=== PATIENT | female | born 1990 | race Caucasian/White ===

== ENCOUNTER 2017-01-08 00:21 | Emergency (ER) | payer OTHER ==
[2017-01-08 00:53] VITALS: TEMP 96.9; BMI 36.7
[2017-01-08] MEDS ORDERED: SODIUM CHLORIDE 1,000 ML IV STA ×2 (01:08→03:05)
[2017-01-08] MEDS ORDERED: FAMOTIDINE 20 MG/50 ML IVPB 50 ML IVPB ONE ×2 (01:08→01:35)
[2017-01-08] MEDS ORDERED: ONDANSETRON 4 MG/2 ML VIAL IVPUSH ONE (01:08)
--- NOTE | 2017-01-08 01:18 | PDOC ---
History of Present Illness - General Chief Complaint: Nausea/Vomiting Stated Complaint: VOMITING BLOOD, NUMBNESS RT HAND Time Seen by Provider: 01/08/17 00:55 History Source: Patient - History of Present Illness Initial Comments: 01/08/17 01:27 27-year-old female complaining of several episodes of vomiting and nausea since 9 PM after eating steak and shrimp at home. Patient reports no other sick contacts. Patient also reports some mild epigastric pain. Denies fever, diarrhea , chest pain, headache. Past History - Past Medical History Allergies/Adverse Reactions: Allergies Allergy/AdvReac Type Severity Reaction Status Date / Time No Known Allergies Allergy Verified 01/08/17 00:52 Home Medications: Ambulatory Orders NK [No Known Home Medication] 01/08/17 Other medical history: Denies - Immunization History Immunization Up to Date: No - Psycho/Social/Smoking Cessation Hx Anxiety: No Suicidal Ideation: No Smoking History: Never smoked Have you smoked in the past 12 months: No Information on smoking cessation initiated: No Hx Alcohol Use: Yes Drug/Substance Use Hx: No Substance Use Type: None Review of Systems - Review of Systems Able to Perform ROS?: Yes Is the patient limited Belgian proficient: No Constitutional: No: Symptoms Reported, See HPI, Chills, Diaphoresis, Fever, Loss of Appetite, Malaise, Night Sweats, Weakness, Weight Stable, Unintentional Wgt. Loss, Unexplained wgt Loss, Other ABD/GI: Yes: Nausea, Vomiting, Other (epigastric pain) : No: Symptoms Reported, See HPI, Burning, Dysuria, Discharge, Frequency, Flank Pain, Hematuria, Incontinence, Pain, Urgency, Testicular Mass, Testicular Swelling, Lesions, Testicular Pain, Other Musculoskeletal: No: Symptoms Reported, See HPI, Back Pain, Gout, Joint Pain, Joint Swelling, Muscle Pain, Muscle Weakness, Neck Pain, Joint Stiffness, Other Integumentary: No: Symptoms Reported, See HPI, Bruising, Change in Color, Change in Hair/Nails, Dryness, Erythema, Flushing, Lesions, Lumps, Pallor, Pruritus, Rash, Sweating, Other *Physical Exam - Vital Signs Last Vital Signs Temp Pulse Resp BP Pulse Ox 96.9 F L 77 19 117/86 98 01/08/17 00:46 01/08/17 00:46 01/08/17 00:46 01/08/17 00:46 01/08/17 00:46 - Physical Exam General Appearance: Yes: Appropriately Dressed Respiratory/Chest: positive: Lungs Clear, Normal Breath Sounds Cardiovascular: positive: Regular Rhythm, Regular Rate Gastrointestinal/Abdominal: positive: Normal Bowel Sounds, Tender (epigastric pain), Soft Extremity: positive: Normal Capillary Refill, Normal Inspection, Normal Range of Motion Integumentary: positive: Normal Color, Dry, Warm Neurologic: positive: Fully Oriented, Alert, Normal Mood/Affect ED Treatment Course - LABORATORY CBC & Chemistry Diagram: 01/08/17 01:20 01/08/17 01:20 Progress Note - Progress Note Progress Note: A: gastroenteritis P: *DC/Admit/Observation/Transfer Diagnosis at time of Disposition: Gastroenteritis - Discharge Dispostion Disposition: HOME Condition at time of disposition: Fair - Referrals Referrals: Dana Lowry [Primary Care Provider] - - Patient Instructions Printed Discharge Instructions: DI for Vomiting -- Adult Additional Instructions: drink plenty of fluids START as BRAT (bananas, rice, apples, [place]) diet follow up with your doctor as soon as possible. - Post Discharge Activity Work/School Note: Back to Work
[2017-01-08 01:32] LABS: BASOPHIL 0.4 % (0-2.0); EOSINOPHIL 0.2 % (0-4.5); MCHC 30.7 g/dl (32.0-36.0); MEAN CELL VOLUME 61.3 fl (80-96); MEAN PLT VOLUME 8.8 fl (7.5-11.1); NEUTROPHILS 85.7 % (42.8-82.8); PLATELET COUNT 449 K/MM3 (134-434); RDW 20.6 % (11.6-15.6); WHITE BLOOD COUNT 9.8 K/mm3 (4.0-10.0)
[2017-01-08 01:33] LABS: MCH 18.8 pg (25.7-33.7)
--- NOTE | 2017-01-08 01:53 | PDOC ---
*Physical Exam - Vital Signs Last Vital Signs Temp Pulse Resp BP Pulse Ox 96.9 F L 77 19 117/86 98 01/08/17 00:46 01/08/17 00:46 01/08/17 00:46 01/08/17 00:46 01/08/17 00:46 ED Treatment Course - LABORATORY CBC & Chemistry Diagram: 01/08/17 01:20 01/08/17 01:20 - ADDITIONAL ORDERS Additional order review: 01/08/17 01:20 RBC 5.03 MCV 61.3 L MCHC 30.7 L RDW 20.6 H MPV 8.8 Neutrophils % 85.7 H Lymphocytes % 10.5 Monocytes % 3.2 L Eosinophils % 0.2 Basophils % 0.4 Medical Decision Making - Medical Decision Making 01/08/17 01:52 Pt seen by the Advanced Practice Provider under my direct supervision Ancillary studies reviewed I agree with plan as outlined by the Advanced Practice Provider RODNEY Londono *DC/Admit/Observation/Transfer Diagnosis at time of Disposition: Gastroenteritis - Discharge Dispostion Disposition: HOME Condition at time of disposition: Fair - Referrals Referrals: Dana Lowry [Primary Care Provider] - - Patient Instructions Printed Discharge Instructions: DI for Vomiting -- Adult Additional Instructions: drink plenty of fluids START as BRAT (bananas, rice, apples, [place]) diet follow up with your doctor as soon as possible. - Post Discharge Activity Work/School Note: Back to Work
[2017-01-08 02:05] LABS: ALBUMIN 3.4 g/dl (3.4-5.0); ANION GAP 9 (8-16); BILIRUBIN,TOTAL 0.3 mg/dL (0.2-1.0); CALCIUM 8.9 mg/dL (8.5-10.1); CO2 23 mmol/L (21-32); CREATININE 0.6 mg/dL (0.55-1.02); GLUCOSE,RANDOM 123 mg/dL (74-106); SGOT/AST 14 U/L (15-37); SGPT/ALT 26 U/L (12-78); TOT PROT 7.3 g/dl (6.4-8.2)
[2017-01-08 02:06] LABS: ALK PHOS 81 U/L (45-117); BILIRUBIN,DIRECT < 0.2 mg/dL (0.0-0.2)
[2017-01-08 02:46] LABS: HYPOCHROMIA 3+; POIKILOCYTOSIS 2+
[2017-01-08 02:47] LABS: ANISOCYTOSIS 2+; MICROCYTOSIS 1+
[2017-01-08 05:31] LABS: PH,URINE 5.5 (5.0-8.0); URINE APPEARANCE CLEAR; URINE BILIRUBIN NEGATIVE (NEGATIVE); URINE BLOOD NEGATIVE (NEGATIVE); URINE COLOR LT. YELLOW; URINE GLUCOSE (UA) NEGATIVE (NEGATIVE); URINE KETONE 1+ (NEGATIVE); URINE LEUK ESTERASE NEGATIVE (NEGATIVE); URINE NITRITE NEGATIVE (NEGATIVE); URINE PROTEIN NEGATIVE (NEGATIVE); URINE UROBILINOGEN 0.2 mg/dL (0.2-1.0)
[2017-01-08 06:16] VITALS: BP 123/68; PULSE 73
== END 2017-01-08 06:15 | disposition home or self-care (01) ==
LOC: JER 00:21
PROC: 3E0337Z Introduction of Electrolytic and Water Balance Substance into Peripheral Vein, Percutaneous Approach (ICD-10-PCS; principal; 2017-01-08)
PROC: 3E033GC Introduction of Other Therapeutic Substance into Peripheral Vein, Percutaneous Approach (ICD-10-PCS; 2017-01-08)
DX: K52.9 Noninfective gastroenteritis and colitis, unspecified (principal)
CPT/HCPCS: 36415; 80053; 80076; 81003; 83690; 84703; 85025; 96361; 96365; 96375; 99281-25

== ENCOUNTER 2017-07-19 16:31 | Emergency (ER) | payer OTHER ==
[2017-07-19 16:39] VITALS: BP 141/70; PULSE 97; TEMP 97.8; BMI 37.5
--- NOTE | 2017-07-19 16:40 | PDOC ---
Rapid Medical Evaluation Chief Complaint: Pain Time Seen by Provider: 07/19/17 16:37 Medical Evaluation: Allergies Allergy/AdvReac Type Severity Reaction Status Date / Time No Known Allergies Allergy Verified 07/19/17 16:36 07/19/17 16:38 I have performed a brief in-person evaluation of this patient. The patient presents with a chief complaint of: fever suzanne 101F, sore throat yesterday, vomiting "every hour", motrin last taken yesterday Pertinent physical exam findings: lungs ctab I have ordered the following: nothing The patient will proceed to the ED for further evaluation. Discharge Disposition - Diagnosis Coughing - Referrals - Patient Instructions - Post Discharge Activity
[2017-07-19] MEDS ORDERED: ONDANSETRON *ODT* 4 MG TABLET ONE (17:29)
[2017-07-19] MEDS ORDERED: ONDANSETRON *ODT* 4 MG TABLET SL ONE (17:30)
--- NOTE | 2017-07-19 17:32 | PDOC ---
History of Present Illness - General Chief Complaint: Cold Symptoms Stated Complaint: VOMITING Time Seen by Provider: 07/19/17 16:37 History Source: Patient Exam Limitations: No Limitations - History of Present Illness Travel History: No Initial Comments: 07/19/17 17:31 Patient complaints of nausea and vomiting over the past 2 days. was seen by PMD over the weekend Tmax 101.5, runny nose, cough that started productive and general body aches. Was not diagnosed with influenza however symptoms sounded very consistent with that. Has been using [id number] medications. Onset of nauseousness and vomiting started 2 days ago with approximately 4 episodes of emesis yesterday and 3 episodes of emesis today. States diarrhea that she come watery also started yesterday with 3 episodes and today 2 episodes. Denies bleeding or black tarriness to stool, denies any hematemesis, denies fevers, no history of gastric ulcers or GI illness. Denies dysuria pain or burning with urine, or history of UTIs, denies any vaginal complaints or possibility of . Timing/Duration: reports: intermittent Quality: reports: mild, moderate Abdominal Pain Onset Location: reports: epigastric, generalized abdomen Pain Radiation: reports: no radiation Past History - Travel Traveled outside of the country in the last 30 days: No Close contact w/someone who was outside of country & ill: No - Past Medical History Allergies/Adverse Reactions: Allergies Allergy/AdvReac Type Severity Reaction Status Date / Time No Known Allergies Allergy Verified 07/19/17 16:36 Home Medications: Ambulatory Orders Ondansetron [Zofran *Odt*] 4 mg SL PRN PRN #14 od.tablet 07/19/17 COPD: No - Immunization History Immunization Up to Date: No - Suicide/Smoking/Psychosocial Hx Smoking History: Never smoked Have you smoked in the past 12 months: No Information on smoking cessation initiated: No Hx Alcohol Use: Yes Drug/Substance Use Hx: No Substance Use Type: None Review of Systems - Review of Systems Able to Perform ROS?: Yes Is the patient limited Lao proficient: Yes Constitutional: Yes: Symptoms Reported, See HPI, Fever (resolved last weekend), Malaise HEENTM: Yes: See HPI. No: Symptoms Reported Respiratory: Yes: See HPI. No: Cough, Wheezing (resolved last weekend) ABD/GI: Yes: Symptoms Reported, See HPI, Diarrhea (becoming more watery 3 today ), Nausea, Vomiting (Imes 3 today). No: Abdominal cramping : Yes: See HPI. No: Symptoms Reported, Burning, Dysuria, Discharge All Other Systems: Reviewed and Negative *Physical Exam - Vital Signs Last Vital Signs Temp Pulse Resp BP Pulse Ox 97.8 F 97 H 18 141/70 100 07/19/17 16:36 07/19/17 16:36 07/19/17 16:36 07/19/17 16:36 07/19/17 16:36 - Physical Exam General Appearance: Yes: Appropriately Dressed, Apparent Distress HEENT: positive: CARMEL[place], TMs Normal (congested but landmarks easily visualized), Pharynx Normal, Nasal Congestion, Rhinorrhea. negative: Pharyngeal Erythema, Tonsillar Exudate, Sinus Tenderness Neck: positive: Supple. negative: Lymphadenopathy (R), Lymphadenopathy (L) Respiratory/Chest: positive: Lungs Clear, Normal Breath Sounds. negative: Rhonchi, Wheezing Gastrointestinal/Abdominal: positive: Normal Bowel Sounds, Soft. negative: Guarding, Rebound, Tenderness Musculoskeletal: positive: Normal Inspection. negative: CVA Tenderness, Muscle Spasm Extremity: positive: Normal Capillary Refill, Normal Inspection, Normal Range of Motion Integumentary: positive: Dry, Warm, Pale Neurologic: positive: inspector balance wheel motion II-XII NML intact, Fully Oriented, Alert, Normal Mood/ Affect, Normal Response, Motor Strength 5/5 Progress Note - Progress Note Progress Note: Probable influenza resolving. With Gastro enteritis component. Treat with Zofran as patient is 5 days into illness. Is able to tolerate by mouth fluids and diarrhea is not profuse. Given information to return for worsened episodes of diarrhea, any noted blood or tarriness, any worsening abdominal pain or any recurrence of fevers. *DC/Admit/Observation/Transfer Diagnosis at time of Disposition: Gastroenteritis - Discharge Dispostion Disposition: HOME Condition at time of disposition: Stable Admit: No - Referrals Referrals: Calixto Pyle MD [Primary Care Provider] - - Patient Instructions Printed Discharge Instructions: DI for Viral Upper Respiratory Infection -- Adult Additional Instructions: Rest, drink lots of fluids: Teas, water, soups Gill gracie, carbonated beverages for the bubbles May try peppermint teas Avoid heavy , spicy or fatty foods until symptoms have resolved Avoid contact with others until fevers and symptoms resolved Lots of handwashing and good hygiene Continue [id number] medications for symptomatic relief Tylenol or Motrin for fever and pain May use Zofran-one tablet dissolved on tongue as needed for nauseousness. May repeat times one every 8 hours Followup with private physician in one to 2 days as needed Return to emergency department for worsened symptoms, fevers, dehydration - Post Discharge Activity Forms/Work/School Notes: Back to Work
== END 2017-07-19 19:01 | disposition home or self-care (01) ==
LOC: JERFT 16:31
DX: J11.2 Influenza due to unidentified influenza virus with gastrointestinal manifestations (principal)
CPT/HCPCS: 99281-25